=== PATIENT | female | born 1990 | race Native Hawaiian/Other Pacific Islander ===

== ENCOUNTER 2022-06-10 09:44 | Outpatient (CLI) | payer OTHER ==
[2022-06-10 10:25] LABS: PLATELET COUNT 304 K/uL (152-353)
== END 2022-06-10 23:09 | disposition home or self-care (01) ==
LOC: LABW 09:44
PROVIDERS: ATTEND Nurse Practitioner Family
DX: M79.641 Pain in right hand (principal); M79.642 Pain in left hand; I10 Essential (primary) hypertension; Z86.19 Personal history of other infectious and parasitic diseases; F19.11 Other psychoactive substance abuse, in remission; R10.12 Left upper quadrant pain; Z09 Encounter for follow-up examination after completed treatment for conditions other than malignant neoplasm
CPT/HCPCS: 36415; 80053; 80061; 80074; 84443; 85027; 85652; 86431; 86677; 86701; 86702; 87389

== ENCOUNTER 2022-09-29 10:59 | Day surgery (SDC) | payer OTHER ==
[~2022-09-29] VITALS: Ht 165.1 cm; Wt 79.4 kg
== END 2022-09-29 14:10 | disposition home or self-care (01) ==
LOC: OR 10:59
PROVIDERS: ATTEND Internal Medicine Gastroenterology
PROC: 0DB68ZX Excision of Stomach, Via Natural or Artificial Opening Endoscopic, Diagnostic (ICD-10-PCS; principal; 2022-09-29)
PROC: 0DB88ZX Excision of Small Intestine, Via Natural or Artificial Opening Endoscopic, Diagnostic (ICD-10-PCS; 2022-09-29)
DX: K21.00 Gastro-esophageal reflux disease with esophagitis, without bleeding (principal); K29.60 Other gastritis without bleeding; R10.12 Left upper quadrant pain; B18.2 Chronic viral hepatitis C
CPT/HCPCS: C1751; J2001; J2704; J7120

== ENCOUNTER 2022-11-12 07:48 | Outpatient (CLI) | payer OTHER ==
[2022-11-12 09:07] LABS: PLATELET COUNT 277 K/uL (152-353)
[2022-11-12 09:21] LABS: POTASSIUM 4.1 mmol/L (3.6-5.2)
== END 2022-11-12 20:09 | disposition home or self-care (01) ==
LOC: US 07:48
PROVIDERS: ATTEND Internal Medicine Gastroenterology
DX: B18.2 Chronic viral hepatitis C (principal)
CPT/HCPCS: 36415; 80053; 80074; 82172; 82247; 82977; 83010; 83883; 84460; 85027; 87522; 87902

== ENCOUNTER 2023-01-07 09:17 | Outpatient (CLI) | payer OTHER | END 2023-01-07 18:56 | disposition home or self-care (01) | LOC: RAD 09:17 | PROVIDERS: ATTEND Nurse Practitioner Family | DX: M06.4 Inflammatory polyarthropathy (principal); Z68.30 Body mass index [BMI] 30.0-30.9, adult ==

== ENCOUNTER 2023-05-18 16:26 | Outpatient (CLI) | payer OTHER ==
[2023-05-18 17:07] LABS: PLATELET COUNT 300 K/uL (152-353)
[2023-05-18 17:20] LABS: POTASSIUM 3.4 mmol/L (3.6-5.2); SODIUM 133 mmol/L (136-145)
== END 2023-05-18 19:40 | disposition home or self-care (01) ==
LOC: RAD 16:26
PROVIDERS: ATTEND Nurse Practitioner Family
DX: R07.89 Other chest pain (principal)
CPT/HCPCS: 36415; 80053; 82550; 82553; 84484; 85027; 93005

== ENCOUNTER 2023-10-04 08:14 | Outpatient (CLI) | payer OTHER ==
[2023-10-04 08:47] LABS: PLATELET COUNT 307 K/uL (152-353)
[2023-10-04 09:02] LABS: POTASSIUM 4.1 mmol/L (3.6-5.2)
== END 2023-10-04 19:20 | disposition home or self-care (01) ==
LOC: LABW 08:14
PROVIDERS: ATTEND Nurse Practitioner Family
DX: I10 Essential (primary) hypertension (principal)
CPT/HCPCS: 36415; 80053; 80061; 82043; 82570; 84443; 85027